=== PATIENT | female | born 1945 | race Caucasian/White ===

== ENCOUNTER 2020-09-14 20:50 | Emergency (ER) | payer OTHER ==
[~2020-09-14] VITALS: Ht 152.4 cm; Wt 61.2 kg
[2020-09-14] MEDS ORDERED: HYZAAR 50-12.51 EACH (21:14)
[2020-09-14] MEDS ORDERED: NORVASC2.5 MG PO (21:15)
[2020-09-14] MEDS ORDERED: CHILDREN'S ASPI81 MG PO (21:15)
[2020-09-15] MEDS ORDERED: ACETAMINOPHEN650 M2 PO (00:55)
== END 2020-09-15 02:04 | disposition home or self-care (01) ==
LOC: ER 20:50
DX: S00.83XA Contusion of other part of head, initial encounter (principal); W18.39XA Other fall on same level, initial encounter; Y93.89 Activity, other specified; Y92.098 Other place in other non-institutional residence as the place of occurrence of the external cause; Y99.8 Other external cause status